=== PATIENT | female | born 1940 | race Caucasian/White ===

== ENCOUNTER 2020-06-13 12:48 | Emergency (ER) | payer MEDICARE, OTHER ==
[~2020-06-13] VITALS: Ht 160 cm; Wt 89.0 kg
[2020-06-13] MEDS ORDERED: TETRACAINE 0.5% OPHTH SOLUTION 4ML BOTTLE. ONE (13:08)
[2020-06-13] MEDS ORDERED: TETRACAINE 0.5% OPHTH SOLUTION 4ML BOTTLE. OU ONE (13:15)
[2020-06-13] MEDS ORDERED: PROPARACAINE 0.5% OPHTH SOLUTION 15ML BOTTLE. OU ONE (13:15)
--- NOTE | 2020-06-13 13:16 | PHYS DOC ---
General Adult EDM: Chief Complaint: VISION PROBLEM HPI: HPI: History gained from patient. Patient is a 80-year-old female past medical history significant for glaucoma, cataracts who presents with chief complaint of sudden onset visual change. She states 30 minutes prior to arrival she was washing blueberries at the sink. She states suddenly her visual field appeared "slanted." She states this lasted only a few seconds and resolved on its own. She states her is able to see her while she was symptomatic and denies any confusion. No facial droop reported. She denies any headache. She denies any eye pain. She denies any black spots, floaters, flashing lights, curtain covering eye sensation. She states this occurred once in 2016. She states that she did have brain imaging that was normal. She notes she does follow with an public health officer closely. She states she did have cataract surgery approximately 1 year ago. She does note that she is on eyedrops for glaucoma and cataracts although she is unsure the name of these. Denies any recent changes these medicines. Denies headache or vomiting. Denies fevers. Denies weakness or numbness. Denies difficulty ambulating. Denies any history of stroke. Denies any history of vascular disease. States her visual field is back to normal. Does not wear contacts or glasses. Review of Systems: Review of Systems: Constitutional: Denies fever or chills Eyes: Positive for blurred vision HENT: Denies nasal congestion or sore throat Respiratory: Denies cough or shortness of breath Cardiovascular: Denies chest pain or edema GI: Denies abdominal pain, nausea, vomiting, bloody stools or diarrhea : Denies dysuria Musculoskeletal: Denies back pain or joint pain Integument: Denies rash Neurologic: Denies headache, focal weakness or sensory changes Endocrine: Denies polyuria or polydipsia Lymphatic: Denies swollen glands Psychiatric: Denies depression or anxiety Current Medications: Current Meds: Current Medications Medications (Trade) Dose Ordered Sig/Dylon Start Time Stop Time Status Last Admin Dose Admin Proparacaine HCl (Proparacaine 0.5% Ophth) 1 drop 1X ONCE 06/13/20 13:15 06/13/20 13:16 UNV Tetracaine HCl (Tetracaine) 40 drop STK-MED ONCE 06/13/20 13:08 06/13/20 13:08 DC Allergies: Allergies: Allergies Coded Allergies Type Severity Reaction Last Updated Verified No Known Drug Allergies 06/13/20 No Physical Exam: PE: Constitutional: Well developed, well nourished, no acute distress, non-toxic appearance. [] HENT: Normocephalic, atraumatic, bilateral external ears normal, oropharynx moist, no oral exudates, nose normal. [] EYES: 20/40 OD 20/50 OS 20/40 OU. There are no visual field deficits. IOP: 17 OD 17 OS. Pupil OD: 3 to 2 OS 3 to 2 mm briskly reactive with no APD present, ERRLA. B/L ophthalmic exam: The periorbital region without erythema or edema. There is no bony tenderness of the bone(s) of the orbital rim. There is no proptosis. There is no blepharedema. The margins of the eyelid are intact without lacerations. The lacrimal system appears intact. EOMI without evidence of entrapment. Cornea is clear without hyphema or hypopyon. Conjunctiva are not injected. There is no subconjunctival hemorrhage. Neck: Normal range of motion, no tenderness, supple, no stridor. [] Cardiovascular:Heart rate regular rhythm, no murmur [] Lungs & Thorax: Bilateral breath sounds clear to auscultation [] Abdomen: soft, no tenderness, no masses, no pulsatile masses. [] Skin: Warm, dry, no erythema, no rash. [] Back: No tenderness, no CVA tenderness. [] Extremities: No tenderness, no cyanosis, no clubbing, ROM intact, no edema. [] Neurologic: Alert with intact cognitive function. No aphasia, dysarthria, or neglect. GCS 15. Pupils 3 mm briskly reactive b/l. No APD present. Cranial nerves 2-12 grossly intact; no facial asymmetry present, tongue midline, shoulder shrugging strength intact. Strength 5/5 and symmetric throughout. Light touch sensation intact throughout. Cerebellar testing appropriate without evidence of dysdiadochokinesia. DTR's 2+ in all 4 extremities. Negative pronator drift bilaterally. Gait normal Psychologic: Affect normal, judgement normal, mood normal. [] Current Patient Data: Labs: Laboratory Tests Test 06/13/20 13:23 White Blood Count 4.7 x10^3/uL Red Blood Count 5.15 x10^6/uL Hemoglobin 15.3 g/dL Hematocrit 46.9 % Mean Corpuscular Volume 91 fL Mean Corpuscular Hemoglobin 30 pg Mean Corpuscular Hemoglobin Concent 33 g/dL Red Cell Distribution Width 13.3 % Platelet Count 208 x10^3/uL Neutrophils (%) (Auto) 62 % Lymphocytes (%) (Auto) 27 % Monocytes (%) (Auto) 10 % Eosinophils (%) (Auto) 1 % Basophils (%) (Auto) 0 % Neutrophils # (Auto) 2.9 x10^3uL Lymphocytes # (Auto) 1.3 x10^3/uL Monocytes # (Auto) 0.5 x10^3/uL Eosinophils # (Auto) 0.0 x10^3/uL Basophils # (Auto) 0.0 x10^3/uL Sodium Level 138 mmol/L Potassium Level 3.7 mmol/L Chloride Level 103 mmol/L Carbon Dioxide Level 26 mmol/L Anion Gap 9 Blood Urea Nitrogen 16 mg/dL Creatinine 0.7 mg/dL Estimated GFR (Cockcroft-Gault) 80.7 Glucose Level 97 mg/dL Calcium Level 9.5 mg/dL Current Medications Medications (Trade) Dose Ordered Sig/Dylon Route PRN Reason Start Time Stop Time Status Last Admin Dose Admin Proparacaine HCl (Proparacaine 0.5% Ophth) 1 drop 1X ONCE OU 06/13/20 13:15 06/13/20 13:16 DC Tetracaine HCl (Tetracaine) 40 drop STK-MED ONCE .ROUTE 06/13/20 13:08 06/13/20 13:08 DC Tetracaine HCl (Tetracaine) 1 drop 1X ONCE OU 06/13/20 13:15 06/13/20 13:27 DC Vital Signs: Vital Signs Date Time Temp Pulse Resp B/P (MAP) Pulse Ox O2 Delivery O2 Flow Rate FiO2 06/13/20 13:44 87 16 168/88 (114) 96 06/13/20 12:50 98.1 86 18 204/97 (132) 98 EKG: EKG: [] Radiology/Procedures: Radiology/Procedures: [address] [id number] IMAGING REPORT Signed PATIENT: ANKIT MENESES ACCOUNT: [id number] : 1940 LOCATION: ER AGE: 80 SEX: F EXAM STATUS: REG ER ORD. PHYSICIAN: NORAH ARRIAZA DO REASON: sudden vision change b/l PROCEDURE: CT HEAD WO CONTRAST CT HEAD/BRAIN WO Clinical indications: Sudden vision changes. COMPARISON: September 20, 2012. Technique: Noncontrast axial cross sectional scanning of the head was performed. PQRS compliance Statement One or more of the following individualized dose reduction techniques were utilized for this study: 1. Automated exposure control 2. Adjustment of the mA and/or kV according to patient size 3. Use of iterative reconstruction technique Findings: No acute intracranial hemorrhage or midline shift or mass-effect or hydrocephalus or extra-axial fluid collection is seen. 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 No other focal hypodense area or sulci effacement is seen to indicate an acute infarct or edema radiographically. No skull fracture or pneumocephalus is seen. No opacification of the mastoid sinuses or the middle ear cavities or the paranasal sinuses is seen. The maxillary sinuses are not completely seen in this study. IMPRESSION: No acute intracranial abnormality is seen. Electronically signed by: Brittani Cheney MD (06/13/2020 1:56 PM) [id number] DICTATED AND SIGNED BY: BRITTANI CHENEY MD DATE: 06/13/20 1352 CC: RIGOBERTO OH MD; NORAH ARRIAZA DO ~MTH0 0 [] Heart Score: Risk Factors: Risk Factors: DM, Current or recent (<one month) smoker, HTN, HLP, family history of CAD, obesity. Risk Scores: Score 0 - 3: 2.5% MACE over next 6 weeks - Discharge Home Score 4 - 6: 20.3% MACE over next 6 weeks - Admit for Clinical Observation Score 7 - 10: 72.7% MACE over next 6 weeks - Early Invasive Strategies Course & Med Decision Making: Course & Med Decision Making Pertinent Labs and Imaging studies reviewed. (See chart for details) [] Patient is a pleasant 72-year-old female who presents with chief complaint of visual disturbance. Initial vital signs unremarkable. Visual acuity within normal limits. Intraocular pressure normal bilaterally. Patient states her visual disturbance was "slanted vision" that lasted a few seconds and resolve spontaneously. Denies any other associated symptoms. Overall low suspicion for emergent ophthalmologic etiology. Suspicion for stroke as she has no other systemic symptoms. She states this has occurred once before. Overall I do feel she is appropriate for discharge home. She states her vision is back to normal. She does have close follow-up with an public health officer and her primary care physician that she can obtain in 2 days. Repeat neurologic exam remains unchanged. Able to ambulate with out difficulty. Return precautions discussed and understood. Stable for discharge home. [place] Disclaimer: Josue Disclaimer: This electronic medical record was generated, in whole or in part, using a voice recognition dictation system. Departure Departure: Impression: Primary Impression: Visual disturbance Disposition: 01 DC HOME SELF CARE/HOMELESS Condition: STABLE Referrals: RIGOBERTO OH MD (PCP) Patient Instructions: Visual Disturbances Additional Instructions: Please follow-up with your primary care physician public health officer on Monday. NORAH ARRIAZA DO Jun 13, 2020 13:16
[2020-06-13 13:44] VITALS: BP 168/88
--- NOTE | 2020-06-13 13:58 | RAD ---
CT HEAD/BRAIN WO Clinical indications: Sudden vision changes. COMPARISON: September 20, 2012. Technique: Noncontrast axial cross sectional scanning of the head was performed. PQRS compliance Statement One or more of the following individualized dose reduction techniques were utilized for this study: 1. Automated exposure control 2. Adjustment of the mA and/or kV according to patient size 3. Use of iterative reconstruction technique Findings: No acute intracranial hemorrhage or midline shift or mass-effect or hydrocephalus or extra- axial fluid collection is seen. 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 No oth er focal hypodense area or sulci effacement is seen to indicate an acute infarct or edema radiographi kenneth. No skull fracture or pneumocephalus is seen. No opacification of the mastoid sinuses or the m iddle ear cavities or the paranasal sinuses is seen. The maxillary sinuses are not completely seen in this study. IMPRESSION: No acute intracranial abnormality is seen. Electronically signed by: Obed Cheney MD (06/13/2020 1:56 PM) [id number]
[2020-06-13 14:03] LABS: BASO % 0 % (0-3); EOS % 1 % (0-3); HEMATOCRIT 46.9 % (36.0-47.0); HEMOGLOBIN 15.3 g/dL (12.0-15.5); LYMPH # 1.3 x10^3/uL (1.0-4.8); LYMPH % 27 % (24-48); MEAN CORPUSCULAR HEMOGLOBIN 30 pg (25-35); MEAN CORPUSCULAR HGB CONC 33 g/dL (31-37); MEAN CORPUSCULAR VOLUME 91 fL (79-100); MONO # 0.5 x10^3/uL (0.0-1.1); MONO % 10 % (0-9); NEUT # 2.9 x10^3uL (1.8-7.7); NEUT % 62 % (31-73); PLATELET COUNT 208 x10^3/uL (140-400); RED BLOOD COUNT 5.15 x10^6/uL (3.50-5.40); RED CELL DISTRIBUTION WIDTH 13.3 % (11.5-14.5); WHITE BLOOD COUNT 4.7 x10^3/uL (4.0-11.0)
[2020-06-13 14:08] LABS: CALCIUM 9.5 mg/dL (8.5-10.1); CREATININE 0.7 mg/dL (0.6-1.0); GFR 80.7; POTASSIUM 3.7 mmol/L (3.5-5.1)
== END 2020-06-13 14:36 | disposition home or self-care (01) ==
LOC: ER 12:48
DX: H53.8 Other visual disturbances (principal); R20.2 Paresthesia of skin
CPT/HCPCS: 36415; 70450; 80048; 85025; 99284

== ENCOUNTER → 2021-07-01 | Outpatient (CLI) | payer MEDICARE, OTHER ==
[~2021-07-01] MED LIST: CONTRAST GIVEN. MC PRN; IOHEXOL 300 MG/ML 75 ML VIAL. IV ONE; IOHEXOL 350 MG/ML 100 ML VIAL. IV ONE
--- NOTE | 2021-07-01 20:12 | RAD ---
Study: CT chest with contrast INDICATION: Chest pain. History of breast cancer. COMPARISON: None. TECHNIQUE: Helical CT imaging of the chest performed after the intravenous administration of 75 cc co ntrast. FINDINGS: Lungs: Minimal pleural effusion on the left with overlying passive and discoid atelectasis. Atelectas is and a component of scarring at the base of the lingula. No confluent airspace infiltrate or suspic ious nodule. Mild bronchial wall thickening at the left lower lobe. Vasculature: Noncalcified more so than calcified atheromatous plaque. Patent great vessel origins. No aortic aneurysm or dissection. No central pulmonary embolism. Mediastinum/joselyn: Small amount of pericardial fluid. There may be mild pericardial thickening. A few granulomas. No pathologically enlarged noncalcified lymph nodes. Neck/axilla/chest wall: Breast surgical clips. No pathologically enlarged axillary or subpectoral lym ph nodes. Upper abdomen: Simple density left renal cyst. Normal adrenal gland morphology. Duodenal diverticulum . Surgically absent gallbladder. No discrete liver lesion. Bones: No acute or aggressive abnormality. Scattered degenerative changes. IMPRESSION: 1. Trace pleural effusion on the left is nonspecific. Mild overlying volume loss but there is no air space infiltrate suspicious for pneumonia or relevant pulmonary nodule. Given history of breast cance r follow-up is recommended to confirm resolution of the pleural fluid. 2. Small amount of pericardial fluid possibly with pericardial thickening. No overt pericardial enha ncement but correlate for any history or symptoms that would suggest pericarditis. 3. No acute major vascular abnormality. 4. Additional chronic observations described above. Electronically signed by: ROSAS CHRISTOPHER MD (07/01/2021 8:09 PM) [facility]
== END ==
LOC: RAD 18:04
PROVIDERS: ATTEND Family Medicine
DX: K57.10 Diverticulosis of small intestine without perforation or abscess without bleeding (principal); J98.09 Other diseases of bronchus, not elsewhere classified; N28.1 Cyst of kidney, acquired; Z90.49 Acquired absence of other specified parts of digestive tract
CPT/HCPCS: 71260; Q9967